=== PATIENT | male | born 1990 | race Caucasian/White ===

== ENCOUNTER 2017-05-07 15:50 | Observation (INO) | payer OTHER ==
[2017-05-07] MEDS ORDERED: Succinylcholine Chloride 20 MG/ML 10 ml SYRINGE FS ONE (15:58)
[2017-05-07] MEDS ORDERED: Propofol 500 MG/50 ML VIAL ONE (16:06)
[2017-05-07 16:14] LABS: #Basophils 0.1 thou/uL (0.0-0.2); #Eosinphils 0.4 thou/uL (0.0-0.7); #Lymphocytes 2.5 thou/uL (1.20-3.40); #Monocytes 0.8 thou/uL (0.11-0.59); #Neutrophils 4.1 thou/uL (1.40-6.50); %Basophils 0.9 % (0.0-1.0); %Eosinophils 5.1 % (0.0-10.0); %Lymphocytes 31.8 % (21.0-51.0); %Monocytes 10.4 % (0.0-10.0); Hematocrit 48.8 % (42.0-52.0); Mean Platelet Volume 6.7 fL (7.4-10.4); Red Blood Cell (RBC) Count 5.36 mill/uL (4.70-6.10); White Blood Cell (WBC) Count 7.9 thou/uL (4.8-10.8)
[2017-05-07 16:15] LABS: Bilirubin Negative (Negative); Blood, Urine Negative (Negative); Glucose, Urine (Dipstick) Negative (Negative); Ketone, Urine Negative (Negative); Nitrite Negative (Negative); Protein, Urine (Dipstick) Negative (Neg-Trace)
[2017-05-07 16:20] LABS: PTT 23.9 SEC (22.9-36.1); Prothrombin Time 13.1 SEC (12.0-14.7)
[2017-05-07] MEDS ORDERED: Propofol 1,000 MG/100 ML VIAL IV ONE (16:20)
[2017-05-07 16:26] LABS: ALT (SGPT) 16 U/L (8-55); AST (SGOT) 16 U/L (5-34); Alkaline Phosphatase 78 U/L (40-150); Anion Gap 14 mmol/L (10-20); BUN (Urea Nitrogen) 13 mg/dL (8.9-20.6); Bilirubin, Total 0.5 mg/dL (0.2-1.2); Calc. Creatinine Clearance 0 mL/min (70-130); Calcium 9.5 mg/dL (7.8-10.44); Carbon Dioxide 25 mmol/L (22-29); Chloride 104 mmol/L (98-107); Estimated GFR-MDRD Greater than 90; Globulin 2.9 g/dL (2.4-3.5); Protein, Total 7.1 g/dL (6.0-8.3)
[2017-05-07 16:29] LABS: Amphetamine Not Detected (NotDetected); Methadone Not Detected (NotDetected); Methamphetamine Not Detected (NotDetected)
[2017-05-07 16:50] LABS: Acetaminophen Less than 6.0 mcg/mL (10.0-30.0); Salicylate Less than 8.0 mg/dL (15.0-30.0)
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
[2017-05-07] MEDS ORDERED: Dextrose 5% in Water 1,000 ML IV PRN (18:00)
[2017-05-07] MEDS ORDERED: Promethazine HCl 25 MG/ML VIAL IM PRN ×2 (18:00)
[2017-05-07] MEDS ORDERED: traMADol HCl 50 MG TAB PO PRN ×2 (18:00)
[2017-05-07] MEDS ORDERED: Ondansetron ODT 4 MG TAB PO PRN (18:00)
[2017-05-07] MEDS ORDERED: Ondansetron HCl/PF 4 MG/2 ML Vial IVP PRN (18:00)
[2017-05-07] MEDS ORDERED: Dextrose 50% Abboject 50 ML SYRINGE SLOW IVP PRN (18:00)
[2017-05-07 18:15] VITALS: BMI 22.7
[2017-05-07] MEDS: Acetaminophen 500 MG TAB PO SCH (18:46)
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
[2017-05-08] MEDS: Acetaminophen 500 MG TAB PO SCH ×4 (00:02→17:46)
[2017-05-08 05:16] LABS: #Basophils 0.1 thou/uL (0.0-0.2); #Eosinphils 0.3 thou/uL (0.0-0.7); #Lymphocytes 2.5 thou/uL (1.20-3.40); #Monocytes 0.9 thou/uL (0.11-0.59); #Neutrophils 6.2 thou/uL (1.40-6.50); %Basophils 0.6 % (0.0-1.0); %Eosinophils 3.1 % (0.0-10.0); %Lymphocytes 25.3 % (21.0-51.0); %Monocytes 8.9 % (0.0-10.0); Hematocrit 48.6 % (42.0-52.0); Mean Platelet Volume 6.5 fL (7.4-10.4); Red Blood Cell (RBC) Count 5.31 mill/uL (4.70-6.10)
[2017-05-08] MEDS ORDERED: Sodium Chloride 0.9% 1,000 ML IV SCH (12:15)
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
[2017-05-09] MEDS: Acetaminophen 500 MG TAB PO SCH ×2 (00:10→05:13)
[2017-05-09 09:57] VITALS: TEMP 98.7
[2017-05-09 13:35] VITALS: BP 120/69
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
== END 2017-05-09 11:55 | disposition home or self-care (01) ==
LOC: ERS 15:50 → INTOOBSV 16:20 → SURG A 16:20
PROVIDERS: ADMIT Surgery; ATTEND Surgery
DX: S06.0X9A Concussion with loss of consciousness of unspecified duration, initial encounter (principal); S06.339A Contusion and laceration of cerebrum, unspecified, with loss of consciousness of unspecified duration, initial encounter; F17.200 Nicotine dependence, unspecified, uncomplicated; M54.2 Cervicalgia; R41.82 Altered mental status, unspecified; W22.8XXA Striking against or struck by other objects, initial encounter; Y93.01 Activity, walking, marching and hiking; Z79.899 Other long term (current) drug therapy; Z88.8 Allergy status to other drugs, medicaments and biological substances
CPT/HCPCS: 31500; 36415; 36416; 51702; 70450; 70551; 71010; 72141; 80053; 80306; 80307; 81003; 82150; 85025; 85610; 85730; 86850; 86900; 86901; 93005; 93010; 94760; 96361; 96374; 96375; G0378; G0390; G8978-GP-CM; G8979-GP-CK; G8987-GO-CK; G8988-GO-CI; G8996-GN-CL; G8997-GN-CK; J2405; J2704